=== PATIENT | male | born 1940 | race Caucasian/White ===

== ENCOUNTER 2019-01-23 12:09 | Inpatient (IN) | payer MEDICARE, MEDICAID ==
[~2019-01-23] VITALS: Ht 167.6 cm; Wt 75.8 kg
[~2019-01-23 12:09] MED LIST: AMIO100T4 MT; ASPI-1158 MT; CLOP75TA15 PO; LIP40 PO; METF-416 MT; METO-396 MT
[2019-01-23 14:16] LABS: CLARITY URINE CLEAR (CLEAR); COLOR URINE YELLOW (YELLOW); KETONES URINE NEGATIVE (NEGATIVE); LEUKOCYTE ESTERASE URINE NEGATIVE (NEGATIVE); NITRITE URINE NEGATIVE (NEGATIVE); OCCULT BLOOD URINE NEGATIVE (NEGATIVE); PH URINE 5.5 (4.5-8.0); PROTEIN URINE NEGATIVE (NEGATIVE); SPECIFIC GRAVITY URINE 1.017 (1.005-1.030); UROBILINOGEN URINE 0.2 E.U./dL (0.2-1.0)
[2019-01-23 14:17] LABS: BASOPHILS % 1.2 % (0.0-2.0); EOSINOPHILS % 4.1 % (0.0-5.0); HEMATOCRIT. 32.2 % (42.0-52.0); HEMOGLOBIN. 10.4 g/dL (14.0-18.0); LYMPHOCYTES % 23.1 % (20.0-50.0); MEAN CORPUSCULAR HEMOGLOBIN 24.6 pg (28.0-32.0); MEAN CORPUSCULAR VOLUME 76.5 fL (80.0-94.0); MONOCYTES % 7.4 % (2.0-8.0); NEUTROPHILS % 64.2 % (40.0-76.0); PLATELET 293 x1000/uL (130-400); RED BLOOD CELL COUNT 4.21 mill/uL (4.7-6.1); RED CELL DISTRIBUTION WIDTH 16.4 % (11.6-14.6)
[2019-01-23 14:23] LABS: CHLORIDE 109 mEq/L (98-107)
[2019-01-23 14:24] LABS: PROTHROMBIN TIME 10.7 sec (9.6-11.0)
[2019-01-23] MEDS ORDERED: IOHEXOL-300 100 ML BOTTLE ONE (16:27)
[2019-01-23 21:30] VITALS: BP 174/76
[2019-01-23] MEDS ORDERED: ONDANSETRON HCL 4MG/2ML INJ IV PRN (23:15)
[2019-01-23] MEDS ORDERED: MORPHINE SULFATE 2 MG/ML CPJ (NOT FOR IM USE) IV PRN (23:15)
[2019-01-23] MEDS ORDERED: HYDRALAZINE 20MG/ML VIAL IV PRN (23:15)
[2019-01-24] VITALS: BP 149/75
[2019-01-24 04:00] VITALS: BP 135/69
[2019-01-24 07:14] LABS: BASOPHILS % 1.3 % (0.0-2.0); EOSINOPHILS % 4.4 % (0.0-5.0); HEMATOCRIT. 30.9 % (42.0-52.0); HEMOGLOBIN. 9.9 g/dL (14.0-18.0); LYMPHOCYTES % 17.6 % (20.0-50.0); MEAN CORPUSCULAR HEMOGLOBIN 24.5 pg (28.0-32.0); MEAN CORPUSCULAR VOLUME 76.2 fL (80.0-94.0); MEAN PLATELET VOLUME 7.2 fl (7.4-10.4); MONOCYTES % 7.4 % (2.0-8.0); NEUTROPHILS % 69.3 % (40.0-76.0); PLATELET 264 x1000/uL (130-400); RED BLOOD CELL COUNT 4.05 mill/uL (4.7-6.1); RED CELL DISTRIBUTION WIDTH 16.4 % (11.6-14.6)
[2019-01-24 07:21] LABS: CHLORIDE 110 mEq/L (98-107)
[2019-01-24] MEDS ORDERED: PNEUMOCOCCAL 23-VAL P-SAC VAC 0.5 ML IM ONE (08:00)
[2019-01-24 08:30] VITALS: BP 161/75
[2019-01-24] MEDS: LACTULOSE 20G/30ML UDC PO SCH ×2 (09:36→17:00)
[2019-01-24] MEDS: METOPROLOL TARTRATE 25MG TABLET PO SCH ×2 (09:37→21:18)
[2019-01-24] MEDS: PANTOPRAZOLE SODIUM 40 MG/VIAL IV SCH (09:42)
[2019-01-24] MEDS ORDERED: INFLUENZA VIRUS VACCINE(AFLURIA) 0.5ML SYR IM ONE (10:00)
[2019-01-24] MEDS: ACETAMINOPHEN 325MG TABLET PO PRN ×2 (12:00→22:17)
[2019-01-24 12:07] VITALS: BP 154/71
[2019-01-24] MEDS: AMLODIPINE 5MG TABLET PO SCH ×2 (15:47→21:15)
[2019-01-24] MEDS ORDERED: SORBITOL 70% SOLN 30ML PO SCH ×2 (16:00→20:00)
[2019-01-24 16:04] VITALS: BP 174/86
[2019-01-24 16:37] LABS: TOTAL IRON BINDING CAPACITY 380 ug/dL (250-450)
[2019-01-24 16:50] LABS: CARCINO EMBRYONIC ANTIGEN 1.5 ng/ml
[2019-01-24] MEDS ORDERED: POLYETHYLENE GLYCOL-ELECTROLYTE 4000ML PO NR (18:45)
[2019-01-24 20:00] VITALS: BP 135/75
[2019-01-24] MEDS ORDERED: ATORVASTATIN CALCIUM 40MG TABLET PO SCH (21:00)
[2019-01-24] MEDS: ATORVASTATIN CALCIUM 40MG TABLET PO SCH (21:15)
[2019-01-24] MEDS: FLUTICASONE PROPIONATE 50MCG/SPRAY BOTTLE BOTHNSTRLS SCH (21:17)
[2019-01-25] VITALS: BP 113/60
[2019-01-25 04:00] VITALS: BP 110/58
[2019-01-25 06:26] LABS: INR 1.1; PARTIAL THROMBOPLASTIN TIME 31.1 sec (23.4-31.0); PROTHROMBIN TIME 10.8 sec (9.6-11.0)
[2019-01-25 06:51] LABS: EOSINOPHILS % 1.3 % (0.0-5.0); HEMATOCRIT. 30.3 % (42.0-52.0); HEMOGLOBIN. 9.7 g/dL (14.0-18.0); LYMPHOCYTES % 14.8 % (20.0-50.0); MEAN CORPUSCULAR HEMOGLOBIN 24.3 pg (28.0-32.0); MEAN CORPUSCULAR VOLUME 75.9 fL (80.0-94.0); MEAN PLATELET VOLUME 7.1 fl (7.4-10.4); MONOCYTES % 8.9 % (2.0-8.0); PLATELET 275 x1000/uL (130-400); RED BLOOD CELL COUNT 3.99 mill/uL (4.7-6.1); RED CELL DISTRIBUTION WIDTH 16.2 % (11.6-14.6)
[2019-01-25 06:57] LABS: CHLORIDE 108 mEq/L (98-107)
[2019-01-25 08:00] VITALS: BP 123/64
[2019-01-25] MEDS: LACTULOSE 20G/30ML UDC PO SCH ×2 (09:00→17:00)
[2019-01-25] MEDS: PANTOPRAZOLE SODIUM 40 MG/VIAL IV SCH (09:48)
[2019-01-25] MEDS: FLUTICASONE PROPIONATE 50MCG/SPRAY BOTTLE BOTHNSTRLS SCH ×2 (09:48→20:40)
[2019-01-25] MEDS: LORATADINE 10MG TABLET PO SCH (09:50)
[2019-01-25] MEDS: METOPROLOL TARTRATE 25MG TABLET PO SCH ×2 (09:50→20:40)
[2019-01-25] MEDS: AMLODIPINE 5MG TABLET PO SCH ×2 (09:52→20:41)
[2019-01-25 12:00] VITALS: BP 145/64
[2019-01-25] MEDS ORDERED: POTASSIUM CHLORIDE INJ 40 MEQ in DEXT 5% WATER 250 ML IV SCH (12:00)
[2019-01-25 16:00] VITALS: BP 118/70
[2019-01-25] MEDS ORDERED: FENTANYL CITRATE/PF 50MCG/ML 2ML VIAL ONE (17:07)
[2019-01-25] MEDS ORDERED: MIDAZOLAM HCL 5 MG/5 ML VIAL ONE (17:07)
[2019-01-25 20:00] VITALS: BP 159/78
[2019-01-25] MEDS: ATORVASTATIN CALCIUM 40MG TABLET PO SCH (20:40)
[2019-01-25] MEDS: FAMOTIDINE 20MG/2ML VIAL IV SCH (22:30)
[2019-01-26] VITALS: BP 126/64
[2019-01-26 04:00] VITALS: BP 149/82
[2019-01-26 08:00] VITALS: BP 136/65
[2019-01-26] MEDS: FAMOTIDINE 20MG/2ML VIAL IV SCH ×2 (08:09→21:35)
[2019-01-26] MEDS: METOPROLOL TARTRATE 25MG TABLET PO SCH ×2 (08:09→21:36)
[2019-01-26] MEDS: FERROUS SULFATE 325MG TABLET PO SCH ×2 (08:09→17:18)
[2019-01-26] MEDS: LORATADINE 10MG TABLET PO SCH (08:09)
[2019-01-26] MEDS: LACTULOSE 20G/30ML UDC PO SCH ×2 (08:10→17:00)
[2019-01-26] MEDS: FLUTICASONE PROPIONATE 50MCG/SPRAY BOTTLE BOTHNSTRLS SCH ×4 (08:10→21:35)
[2019-01-26] MEDS: AMLODIPINE 5MG TABLET PO SCH ×2 (08:10→21:35)
[2019-01-26 12:00] VITALS: BP 134/59
[2019-01-26 16:00] VITALS: BP 145/60
[2019-01-26 20:00] VITALS: BP 136/62
[2019-01-26] MEDS: ATORVASTATIN CALCIUM 40MG TABLET PO SCH (21:35)
[2019-01-27] VITALS: BP 114/45
[2019-01-27 04:00] VITALS: BP 112/46
[2019-01-27 07:06] LABS: BASOPHILS % 1.2 % (0.0-2.0); EOSINOPHILS % 4.8 % (0.0-5.0); HEMATOCRIT. 28.5 % (42.0-52.0); HEMOGLOBIN. 9.3 g/dL (14.0-18.0); LYMPHOCYTES % 16.8 % (20.0-50.0); MEAN CORPUSCULAR HEMOGLOBIN 24.6 pg (28.0-32.0); MEAN CORPUSCULAR VOLUME 75.4 fL (80.0-94.0); MEAN PLATELET VOLUME 7.3 fl (7.4-10.4); MONOCYTES % 8.4 % (2.0-8.0); NEUTROPHILS % 68.8 % (40.0-76.0); PLATELET 241 x1000/uL (130-400); RED BLOOD CELL COUNT 3.78 mill/uL (4.7-6.1); RED CELL DISTRIBUTION WIDTH 15.8 % (11.6-14.6)
[2019-01-27 07:25] LABS: CHLORIDE 106 mEq/L (98-107)
[2019-01-27 08:00] VITALS: BP 144/73
[2019-01-27] MEDS: LACTULOSE 20G/30ML UDC PO SCH ×2 (09:00→17:00)
[2019-01-27] MEDS: AMLODIPINE 5MG TABLET PO SCH ×2 (09:26→21:31)
[2019-01-27] MEDS: METOPROLOL TARTRATE 25MG TABLET PO SCH ×2 (09:27→21:31)
[2019-01-27] MEDS: FAMOTIDINE 20MG/2ML VIAL IV SCH ×2 (09:27→21:30)
[2019-01-27] MEDS: FLUTICASONE PROPIONATE 50MCG/SPRAY BOTTLE BOTHNSTRLS SCH (09:27)
[2019-01-27] MEDS: LORATADINE 10MG TABLET PO SCH (09:27)
[2019-01-27] MEDS: FERROUS SULFATE 325MG TABLET PO SCH ×2 (09:28→18:42)
[2019-01-27 12:00] VITALS: BP 141/58
[2019-01-27] MEDS ORDERED: KCL 20MEQ/100ML PREMIX 100 ML IV SCH (13:00)
[2019-01-27 16:00] VITALS: BP_SYST 142; BP_SYST 145; BP_DIAS 72; BP_DIAS 73
[2019-01-27 21:00] VITALS: BP 150/63
[2019-01-27] MEDS: ATORVASTATIN CALCIUM 40MG TABLET PO SCH (21:30)
[2019-01-28] VITALS: BP 125/58
[2019-01-28 04:00] VITALS: BP 128/60
[2019-01-28] MEDS ORDERED: MAGNESIUM CITRATE 300ML SOLUTION PO NR (06:10)
[2019-01-28 06:11] LABS: CHLORIDE 109 mEq/L (98-107)
[2019-01-28 06:25] LABS: HEMATOCRIT. 28.8 % (42.0-52.0); HEMOGLOBIN. 9.4 g/dL (14.0-18.0); MEAN CORPUSCULAR HEMOGLOBIN 24.5 pg (28.0-32.0); MEAN CORPUSCULAR VOLUME 75.4 fL (80.0-94.0); MEAN PLATELET VOLUME 7.3 fl (7.4-10.4); PLATELET 239 x1000/uL (130-400); RED BLOOD CELL COUNT 3.82 mill/uL (4.7-6.1)
[2019-01-28] MEDS ORDERED: POTASSIUM CHLORIDE 20MEQ TABLET SR PO NR ×2 (07:15→12:00)
[2019-01-28 08:00] VITALS: BP 107/67
[2019-01-28] MEDS ORDERED: METRONIDAZOLE 500MG TABLET PO NR ×3 (08:00→14:00)
[2019-01-28] MEDS ORDERED: NEOMYCIN 500MG TABLET PO NR ×3 (08:00→14:00)
[2019-01-28] MEDS: DEXT 5%/0.45% NACL KCL 40MEQ/L 1,000 ML IV SCH ×3 (08:22→18:08)
[2019-01-28] MEDS: LACTULOSE 20G/30ML UDC PO SCH ×2 (08:23→16:34)
[2019-01-28] MEDS: FAMOTIDINE 20MG/2ML VIAL IV SCH (08:23)
[2019-01-28] MEDS: LORATADINE 10MG TABLET PO SCH (08:24)
[2019-01-28] MEDS: FERROUS SULFATE 325MG TABLET PO SCH ×2 (08:24→16:34)
[2019-01-28] MEDS: METOPROLOL TARTRATE 25MG TABLET PO SCH (08:25)
[2019-01-28] MEDS: AMLODIPINE 5MG TABLET PO SCH (08:36)
[2019-01-28 11:52] LABS: PLATELET ESTIMATE NORMAL
[2019-01-28 12:00] VITALS: BP 132/69
[2019-01-28 16:00] VITALS: BP 110/47
[2019-01-28 18:46] LABS: CHLORIDE 114 mEq/L (98-107)
[2019-01-28] MEDS ORDERED: LIDOCAINE HCL 1% 20ML VIAL (Pyxis) INJ ONE (18:51)
[2019-01-28] MEDS ORDERED: BUPIVACAINE HCL/PF 0.5% (5MG/ML) 10ML ONE (18:52)
[2019-01-28] MEDS ORDERED: ROCURONIUM BROMIDE 10MG/ML VIAL 5ML IV ONE ×2 (19:20→20:02)
[2019-01-28] MEDS ORDERED: FENTANYL CITRATE/PF 50MCG/ML 2ML VIAL ONE (19:20)
[2019-01-28] MEDS ORDERED: MIDAZOLAM HCL 2 MG/2 ML VIAL ONE (19:20)
[2019-01-28] MEDS ORDERED: PROPOFOL 200MG/20ML VIAL IV ONE (19:20)
[2019-01-28] MEDS ORDERED: GLYCOPYRROLATE 0.2 MG/ML 2ML VIAL ONE ×2 (19:20→21:49)
[2019-01-28] MEDS ORDERED: NEOSTIGMINE METHYLSULFATE 1MG/ML 10 ML VIAL ONE (19:20)
[2019-01-28] MEDS ORDERED: DEXAMETHASONE 4MG/ML 1ML VIAL ONE (19:21)
[2019-01-28] MEDS ORDERED: METRONIDAZOLE 500 MG PREMIX 100 ML IV SCH (19:30)
[2019-01-28] MEDS ORDERED: ONDANSETRON HCL 4MG/2ML INJ ONE (19:33)
[2019-01-28] MEDS ORDERED: GENTAMICIN 100MG PREMIX 50 ML IV SCH (19:45)
[2019-01-28] MEDS ORDERED: LEVOFLOXACIN 500MG PREMIX 100 ML IV SCH (19:45)
[2019-01-28] MEDS ORDERED: LABETALOL 5MG/ML SYR 20 MG/4 ML SYRINGE IV PRN (20:45)
[2019-01-28] MEDS ORDERED: MEPERIDINE HCL/PF 25MG/ML CPJ IV PRN (20:45)
[2019-01-28] MEDS ORDERED: ONDANSETRON HCL 4MG/2ML INJ IV PRN (20:45)
[2019-01-28] MEDS ORDERED: HYDROMORPHONE HCL/PF 2MG/ML (OR) ONE (20:53)
[2019-01-28] MEDS ORDERED: BACITRACIN 50,000 UNITS/VIAL ONE ×2 (21:12→21:19)
[2019-01-28] MEDS: HYDROMORPHONE HCL/PF 2MG/ML CPJ IV PRN ×4 (22:22→23:05)
[2019-01-28] MEDS ORDERED: HYDROMORPHONE HCL/PF 2MG/ML CPJ IV PRN (22:30)
[2019-01-28] MEDS ORDERED: DEXT 5%/0.45% NACL KCL 20MEQ/L 1,000 ML IV SCH (22:30)
[2019-01-29] VITALS: BP 142/58
[2019-01-29] MEDS: DEXT 5%/0.45% NACL KCL 20MEQ/L 1,000 ML IV SCH ×3 (02:11→20:55)
[2019-01-29] MEDS: HYDROMORPHONE HCL/PF 2MG/ML CPJ IV PRN ×6 (02:14→20:54)
[2019-01-29 04:00] VITALS: BP 143/72
[2019-01-29 06:58] LABS: HEMATOCRIT. 32.7 % (42.0-52.0); HEMOGLOBIN. 10.4 g/dL (14.0-18.0); MEAN CORPUSCULAR HEMOGLOBIN 24.5 pg (28.0-32.0); MEAN CORPUSCULAR VOLUME 77.2 fL (80.0-94.0); MEAN PLATELET VOLUME 7.3 fl (7.4-10.4); PLATELET 293 x1000/uL (130-400); RED BLOOD CELL COUNT 4.24 mill/uL (4.7-6.1); RED CELL DISTRIBUTION WIDTH 16.2 % (11.6-14.6)
[2019-01-29 07:15] LABS: CHLORIDE 110 mEq/L (98-107)
[2019-01-29 08:00] VITALS: BP 160/83
[2019-01-29] MEDS: FAMOTIDINE 20MG/2ML VIAL IV SCH ×2 (08:28→20:54)
[2019-01-29] MEDS: LACTULOSE 20G/30ML UDC PO SCH ×2 (08:28→16:45)
[2019-01-29] MEDS: LORATADINE 10MG TABLET PO SCH (08:29)
[2019-01-29] MEDS: AMLODIPINE 5MG TABLET PO SCH ×2 (08:29→22:21)
[2019-01-29] MEDS: FERROUS SULFATE 325MG TABLET PO SCH ×2 (08:30→16:46)
[2019-01-29] MEDS: METOPROLOL TARTRATE 25MG TABLET PO SCH ×2 (08:30→22:21)
[2019-01-29] MEDS ORDERED: TOBRAMYCIN SULFATE 80MG/2ML 30ML ONE (08:58)
[2019-01-29] MEDS ORDERED: BUPIVACAINE HCL/PF 0.75% (7.5MG/ML) 10ML ONE (08:58)
[2019-01-29] MEDS ORDERED: METHYLPREDNISOLONE SOD SUCC 40 MG/ML VIAL ONE (08:59)
[2019-01-29] MEDS ORDERED: LIDOCAINE HCL/EPINEPHRINE 1%-EPI 1:100,000 20 ML VIAL ONE (08:59)
[2019-01-29] MEDS ORDERED: METRONIDAZOLE 500 MG PREMIX 100 ML IV SCH (10:30)
[2019-01-29 12:00] VITALS: BP 142/76
[2019-01-29] MEDS ORDERED: DEXTROSE 50% WATER 50ML SYRINGE IV PRN (12:00)
[2019-01-29] MEDS: BLOOD SUGAR DIAGNOSTIC STRIP TEST SCH ×3 (12:32→20:55)
[2019-01-29] MEDS: INSULIN LISPRO 100 UNITS/ML SUBCUT SCH ×3 (13:04→20:57)
[2019-01-29 14:16] LABS: PLATELET ESTIMATE NORMAL
[2019-01-29 16:00] VITALS: BP 119/68
[2019-01-29 20:00] VITALS: BP 137/68
[2019-01-29] MEDS ORDERED: CHLORPROMAZINE HCL 25MG/1ML AMP IM NR (20:00)
[2019-01-29] MEDS: ATORVASTATIN CALCIUM 40MG TABLET PO SCH ×2 (22:21→22:26)
[2019-01-30] VITALS: BP 112/62
[2019-01-30] MEDS: HYDROMORPHONE HCL/PF 2MG/ML CPJ IV PRN ×4 (00:15→19:52)
[2019-01-30 04:00] VITALS: BP 125/64
[2019-01-30 06:19] LABS: HEMATOCRIT. 29.5 % (42.0-52.0); HEMOGLOBIN. 9.4 g/dL (14.0-18.0); MEAN CORPUSCULAR HEMOGLOBIN 24.4 pg (28.0-32.0); MEAN CORPUSCULAR VOLUME 77.1 fL (80.0-94.0); MEAN PLATELET VOLUME 7.5 fl (7.4-10.4); PLATELET 278 x1000/uL (130-400); RED BLOOD CELL COUNT 3.83 mill/uL (4.7-6.1); RED CELL DISTRIBUTION WIDTH 16.7 % (11.6-14.6)
[2019-01-30] MEDS: BLOOD SUGAR DIAGNOSTIC STRIP TEST SCH ×4 (06:19→21:23)
[2019-01-30] MEDS: DEXT 5%/0.45% NACL KCL 20MEQ/L 1,000 ML IV SCH ×2 (06:19→16:58)
[2019-01-30 07:32] LABS: CHLORIDE 108 mEq/L (98-107)
[2019-01-30] MEDS: FERROUS SULFATE 325MG TABLET PO SCH ×2 (07:50→17:00)
[2019-01-30 08:00] VITALS: BP 132/72
[2019-01-30] MEDS: FAMOTIDINE 20MG/2ML VIAL IV SCH ×2 (08:31→21:21)
[2019-01-30] MEDS: ACETAMINOPHEN 325MG TABLET PO PRN (08:31)
[2019-01-30] MEDS: LORATADINE 10MG TABLET PO SCH ×2 (08:31→09:00)
[2019-01-30] MEDS: LACTULOSE 20G/30ML UDC PO SCH ×2 (08:32→16:58)
[2019-01-30] MEDS: AMLODIPINE 5MG TABLET PO SCH ×2 (08:32→21:22)
[2019-01-30] MEDS: METOPROLOL TARTRATE 25MG TABLET PO SCH ×2 (08:32→21:22)
[2019-01-30] MEDS: INSULIN LISPRO 100 UNITS/ML SUBCUT SCH ×4 (08:57→21:22)
[2019-01-30 09:18] LABS: PLATELET ESTIMATE NORMAL
[2019-01-30] MEDS ORDERED: BISACODYL 10MG SUPP PR NR (09:30)
[2019-01-30] MEDS: METOCLOPRAMIDE HCL 10MG/2ML VIAL IV SCH ×2 (11:44→17:00)
[2019-01-30 12:00] VITALS: BP 127/59
[2019-01-30 20:00] VITALS: BP 132/69
[2019-01-30] MEDS: ATORVASTATIN CALCIUM 40MG TABLET PO SCH (21:22)
[2019-01-31] VITALS: BP 138/60
[2019-01-31] MEDS: METOCLOPRAMIDE HCL 10MG/2ML VIAL IV SCH ×4 (00:45→21:29)
[2019-01-31] MEDS: HYDROMORPHONE HCL/PF 2MG/ML CPJ IV PRN ×5 (00:51→23:18)
[2019-01-31] MEDS: DEXT 5%/0.45% NACL KCL 20MEQ/L 1,000 ML IV SCH ×2 (02:24→12:31)
[2019-01-31 04:00] VITALS: BP 148/77
[2019-01-31] MEDS: BLOOD SUGAR DIAGNOSTIC STRIP TEST SCH ×4 (06:40→21:31)
[2019-01-31 07:13] LABS: BASOPHILS % 0.7 % (0.0-2.0); EOSINOPHILS % 3.4 % (0.0-5.0); HEMATOCRIT. 29.5 % (42.0-52.0); HEMOGLOBIN. 9.2 g/dL (14.0-18.0); LYMPHOCYTES % 11.9 % (20.0-50.0); MEAN CORPUSCULAR HEMOGLOBIN 24.8 pg (28.0-32.0); MEAN CORPUSCULAR VOLUME 79.9 fL (80.0-94.0); MEAN PLATELET VOLUME 7.5 fl (7.4-10.4); MONOCYTES % 5.6 % (2.0-8.0); NEUTROPHILS % 78.4 % (40.0-76.0); PLATELET 211 x1000/uL (130-400); RED CELL DISTRIBUTION WIDTH 17.1 % (11.6-14.6)
[2019-01-31] MEDS: FERROUS SULFATE 325MG TABLET PO SCH ×2 (07:30→17:46)
[2019-01-31 07:33] LABS: CHLORIDE 109 mEq/L (98-107)
[2019-01-31 08:00] VITALS: BP 147/77
[2019-01-31] MEDS: AMLODIPINE 5MG TABLET PO SCH ×2 (08:11→21:29)
[2019-01-31] MEDS: FAMOTIDINE 20MG/2ML VIAL IV SCH ×2 (08:11→21:29)
[2019-01-31] MEDS: LACTULOSE 20G/30ML UDC PO SCH (08:11)
[2019-01-31] MEDS: METOPROLOL TARTRATE 25MG TABLET PO SCH ×2 (08:12→21:30)
[2019-01-31] MEDS: LORATADINE 10MG TABLET PO SCH (08:12)
[2019-01-31] MEDS: INSULIN LISPRO 100 UNITS/ML SUBCUT SCH ×4 (08:20→21:31)
[2019-01-31 12:00] VITALS: BP 145/69
[2019-01-31] MEDS ORDERED: POTASSIUM CHLORIDE 20MEQ TABLET SR PO NR (12:00)
[2019-01-31] MEDS ORDERED: HYDRALAZINE 20MG/ML VIAL IV PRN (12:00)
[2019-01-31 16:00] VITALS: BP 159/78
[2019-01-31 20:34] VITALS: BP 131/70
[2019-01-31] MEDS: ATORVASTATIN CALCIUM 40MG TABLET PO SCH (21:29)
[2019-02-01 00:04] VITALS: BP 139/59
[2019-02-01] MEDS: DEXT 5%/0.45% NACL KCL 20MEQ/L 1,000 ML IV SCH ×2 (02:19→23:59)
[2019-02-01 04:00] VITALS: BP 142/72
[2019-02-01] MEDS: BLOOD SUGAR DIAGNOSTIC STRIP TEST SCH ×4 (07:20→21:48)
[2019-02-01] MEDS: FERROUS SULFATE 325MG TABLET PO SCH ×2 (07:50→17:42)
[2019-02-01 07:53] LABS: BASOPHILS % 1.2 % (0.0-2.0); EOSINOPHILS % 7.8 % (0.0-5.0); HEMATOCRIT. 28.6 % (42.0-52.0); HEMOGLOBIN. 9.1 g/dL (14.0-18.0); LYMPHOCYTES % 13.7 % (20.0-50.0); MEAN CORPUSCULAR HEMOGLOBIN 24.3 pg (28.0-32.0); MEAN CORPUSCULAR VOLUME 76.3 fL (80.0-94.0); MEAN PLATELET VOLUME 7.8 fl (7.4-10.4); MONOCYTES % 6.5 % (2.0-8.0); NEUTROPHILS % 70.8 % (40.0-76.0); PLATELET 278 x1000/uL (130-400); RED BLOOD CELL COUNT 3.75 mill/uL (4.7-6.1); RED CELL DISTRIBUTION WIDTH 16.3 % (11.6-14.6)
[2019-02-01 08:00] VITALS: BP 151/77
[2019-02-01] MEDS: AMLODIPINE 5MG TABLET PO SCH ×2 (08:43→21:48)
[2019-02-01] MEDS: FAMOTIDINE 20MG/2ML VIAL IV SCH ×2 (08:43→21:48)
[2019-02-01] MEDS: METOCLOPRAMIDE HCL 10MG/2ML VIAL IV SCH ×2 (08:43→21:48)
[2019-02-01] MEDS: METOPROLOL TARTRATE 25MG TABLET PO SCH ×2 (08:44→21:48)
[2019-02-01] MEDS: LORATADINE 10MG TABLET PO SCH (08:44)
[2019-02-01 08:45] LABS: CHLORIDE 108 mEq/L (98-107)
[2019-02-01] MEDS: INSULIN LISPRO 100 UNITS/ML SUBCUT SCH ×4 (08:57→21:56)
[2019-02-01] MEDS: HYDROMORPHONE HCL/PF 2MG/ML CPJ IV PRN ×3 (09:28→20:33)
[2019-02-01 12:00] VITALS: BP 127/69
[2019-02-01] MEDS ORDERED: IRON SUCROSE COMPLEX 100 MG/5 ML ML IV SCH (12:45)
[2019-02-01 16:00] VITALS: BP 159/77
[2019-02-01] MEDS ORDERED: ZOLPIDEM TARTRATE 5MG TABLET PO PRN (18:15)
[2019-02-01 20:03] VITALS: BP 152/83
[2019-02-01] MEDS: ATORVASTATIN CALCIUM 40MG TABLET PO SCH (21:48)
[2019-02-02 00:10] VITALS: BP 144/72
[2019-02-02 04:00] VITALS: BP 144/69
[2019-02-02] MEDS: BLOOD SUGAR DIAGNOSTIC STRIP TEST SCH ×2 (06:20→12:56)
[2019-02-02 06:49] LABS: BASOPHILS % 1.9 % (0.0-2.0); HEMOGLOBIN. 9.3 g/dL (14.0-18.0); LYMPHOCYTES % 19.7 % (20.0-50.0); MEAN CORPUSCULAR HEMOGLOBIN 24.3 pg (28.0-32.0); MEAN CORPUSCULAR VOLUME 76.1 fL (80.0-94.0); MEAN PLATELET VOLUME 7.1 fl (7.4-10.4); MONOCYTES % 8.7 % (2.0-8.0); NEUTROPHILS % 59.7 % (40.0-76.0); PLATELET 368 x1000/uL (130-400); RED BLOOD CELL COUNT 3.81 mill/uL (4.7-6.1); RED CELL DISTRIBUTION WIDTH 16.4 % (11.6-14.6)
[2019-02-02 07:32] LABS: CHLORIDE 106 mEq/L (98-107)
[2019-02-02 08:00] VITALS: BP 143/72
[2019-02-02] MEDS: INSULIN LISPRO 100 UNITS/ML SUBCUT SCH ×2 (08:11→12:56)
[2019-02-02] MEDS: FAMOTIDINE 20MG/2ML VIAL IV SCH (08:37)
[2019-02-02] MEDS: METOCLOPRAMIDE HCL 10MG/2ML VIAL IV SCH (08:37)
[2019-02-02] MEDS: FERROUS SULFATE 325MG TABLET PO SCH (08:38)
[2019-02-02] MEDS: LORATADINE 10MG TABLET PO SCH (08:38)
[2019-02-02] MEDS: AMLODIPINE 5MG TABLET PO SCH (08:38)
[2019-02-02] MEDS: METOPROLOL TARTRATE 25MG TABLET PO SCH (08:40)
[2019-02-02 14:35] VITALS: BP 143/72
[2019-02-02] MEDS ORDERED: FAMOTIDINE 20MG TABLET PO SCH (21:00)
== END 2019-02-02 18:25 | disposition home health service (06) | DRG 231 ==
LOC: ER 12:09 → 6WST 18:34 → EDBEDREQ 18:43 → EDBEDREQTM 18:43 → ENRESERV 20:41 → 6WST 22:33
PROVIDERS: ADMIT Internal Medicine; ATTEND Internal Medicine
PROC: 0DBK8ZX Excision of Ascending Colon, Via Natural or Artificial Opening Endoscopic, Diagnostic (ICD-10-PCS; principal; 2019-01-25)
PROC: 0DBL8ZX Excision of Transverse Colon, Via Natural or Artificial Opening Endoscopic, Diagnostic (ICD-10-PCS; 2019-01-25)
PROC: 0DBN8ZX Excision of Sigmoid Colon, Via Natural or Artificial Opening Endoscopic, Diagnostic (ICD-10-PCS; 2019-01-25)
PROC: 0DBM8ZX Excision of Descending Colon, Via Natural or Artificial Opening Endoscopic, Diagnostic (ICD-10-PCS; 2019-01-25)
PROC: 0DBH8ZX Excision of Cecum, Via Natural or Artificial Opening Endoscopic, Diagnostic (ICD-10-PCS; 2019-01-25)
PROC: 0DTM0ZZ Resection of Descending Colon, Open Approach (ICD-10-PCS; 2019-01-28)
DX: C18.9 Malignant neoplasm of colon, unspecified (principal); K63.3 Ulcer of intestine; K56.7 Ileus, unspecified; E11.9 Type 2 diabetes mellitus without complications; D50.9 Iron deficiency anemia, unspecified; E78.5 Hyperlipidemia, unspecified; I10 Essential (primary) hypertension; I25.2 Old myocardial infarction; I25.10 Atherosclerotic heart disease of native coronary artery without angina pectoris; R91.8 Other nonspecific abnormal finding of lung field; E87.6 Hypokalemia; R26.9 Unspecified abnormalities of gait and mobility; K42.9 Umbilical hernia without obstruction or gangrene; N40.0 Benign prostatic hyperplasia without lower urinary tract symptoms; K57.30 Diverticulosis of large intestine without perforation or abscess without bleeding; K40.20 Bilateral inguinal hernia, without obstruction or gangrene, not specified as recurrent; K59.00 Constipation, unspecified; Z90.49 Acquired absence of other specified parts of digestive tract; Z95.5 Presence of coronary angioplasty implant and graft; Z79.84 Long term (current) use of oral hypoglycemic drugs; Z79.82 Long term (current) use of aspirin
CPT/HCPCS: 36415; 71045; 74177; 80048; 81003; 82270; 82378; 82728; 82962; 83036; 83540; 83550; 83735; 83880; 84484; 85379; 86850; 86900; 86920; 88305; 88307; 90686; 90732; 93005; 93970; 96374; 97116; 97162; 97530; 99285; C9113; J0360; J1100; J1170; J1580; J1815; J1956; J2250; J2405; J2704; J2710; J2765; J2920; J3010; J3230; J3260; J3480; J3490; J7060; Q9967